=== PATIENT | male | born 1980 | race Caucasian/White ===

== ENCOUNTER 2025-03-24 16:01 | Emergency (ER) | payer BC, SELFPAY ==
[2025-03-24 16:10] VITALS: BP 114/84
--- NOTE | 2025-03-24 17:32 | ED.GENMED ---
History of Present Illness
General
Chief Complaint: Musculo-Skeletal Complaint
Source: patient
Exam Limitations: none
Time Seen by Provider: 03/24/25 17:29
History of Present Illness
History of Present Illness:
See MDM
Past History
Past History
ED Past Medical History: GERD and Other (Anxiety)
ED Past Surgical History: None
Social History
Tobacco: Smoker
Alcohol: Daily
Drug: None
Personal: Other
Living: with family
Employment: Employed
Family History
Family History: Other (His father had esophageal cancer)
Phy Exam
Physical Exam
Physical Exam:
See MDM
Course
Orders/Labs/Results
Orders:
Orders
03/24/25 16:10
Ribs, Right 3 View W/PA Chest [CR Ribs-right 3 Vw W/pa Chest*] Urgent
Comment:
Reason For Exam: injury
Vital Signs
Initial and Last Documented VS:
Initial Vital Signs
Temp Pulse Resp BP Pulse Ox
98.4 F 71 17 114/84 99
03/24/25 16:10 03/24/25 16:10 03/24/25 16:10 03/24/25 16:10 03/24/25 16:10
Last Documented Vital Signs
Temp Pulse Resp BP Pulse Ox
98.4 F 71 17 114/84 99
03/24/25 16:10 03/24/25 16:10 03/24/25 16:10 03/24/25 16:10 03/24/25 16:10
MDM/Problems Addressed
Differential Diagnosis Includes:
HPI and MDM Narrative:
44-year-old male presenting with right lateral rib pain. Patient was hit by a baseball in his rib cage. Patient states he was curious about a possible rib fracture. X-ray done prior to my assess showing no evidence of rib fracture or
pneumothorax. On my exam, he does have bruising to his right lateral chest. No crepitus. No acute respiratory distress. Patient states he feels comfortable going home. He declined pain medicine
Physical exam
General: Well appearing and non-toxic
HEENT: protecting airway
Neck: appears supple
CV: No evidence of cyanosis
Chest: Bruising noted to right lateral rib cage. No crepitus
Resp: No accessory muscle use
Abd: Non-distended
Extremities: No deformities
Neuro: alert
Psych: Normal affect
Skin: Intact
Problems Addressed including Acute and Chronic Conditions affecting care:
1. Rib contusion
Acuity: acute
Prognosis: stable
Details: X-ray negative for fracture. Patient feels comfortable going home
Differential Diagnosis (but not limited to): Rib fracture, rib contusion, pneumothorax
Testing considered: EKG
Drug therapy (if applicable): OTC meds, please see d/c instruction regarding Rx drugs
Amount and/or Complexity of Data Reviewed
Clinical info obtained from: Patient
External data reviewed: N/A
Labs I independently reviewed (but not limited to): N/A
Radiology: X-ray independently reviewed: No rib fracture seen on x-ray
Pulse Ox: not hypoxic
EKG independently reviewed: N/A
Boat Operator: N/A
Critical Care: N/A
Risk of Complication:
Social Determinants of health: Good social support
Discussed with other providers: N/A
Escalation of Care includes Admit/Obs: After being observed in the Emergency Department, pt stable for discharge.
Occasional wrong word or 'sound a like' substitutions may have occurred due to the inherent limitations of voice recognition software. Read the chart carefully and recognize, using context, where substitutions have occurred.
*Critical Care Note
Total Time (30-74mins, 75-104mins- exclusive of procedures): Not Applicable
ED Attending Note
-
Portions of this chart may have been created with voice recognition software.� Occasional wrong word or��sound alike� substitutions may have occurred due to the inherent limitations of voice recognition software.
Discharge Plan
Departure
Patient Disposition: Home (Routine Discharge)
Date of Disposition: 03/24/25
Time of Disposition: 17:33
Patient with high blood pressure during this ER visit?: No
Discharge Problem:
Contusion of rib on right side
Instructions: Rib fracture or bruised rib - ED discharge instructions
Prescriptions:
No Action
omeprazole [Prilosec] 40 MG capsule,delayed release(DR/EC)
40 mg PO DAILY
lorazepam 0.5 MG tablet
0.5 mg PO Q4HPRN PRN (Reason: anxiety)
escitalopram oxalate 20 MG tablet
20 mg PO DAILY
hydrocortisone acetate 25 MG suppository
25 mg IA BID Qty: 10 0RF
hydrocodone-acetaminophen 1 TABLET tablet
1 tab PO Q4HPRN PRN (Reason: Moderate to severe pain) Qty: 12 0RF
ibuprofen 600 MG tablet
600 mg PO Q6 Qty: 20 0RF
Activity Restrictions/Additional Instructions:
Please return for any worsening symptoms.
You may return at any time if you have further concerns.
Please follow up with your doctor at the first available appointment, preferably this week.
Thank you for choosing [facility].
Interventions
Interventions:
*Risk Screen - Suicide Last Done: 03/24/25 16:10
*General Assessment Last Done: 03/24/25 16:10
*ED- Fall Risk Assessment Last Done: 03/24/25 16:10
*ED COVID-19 Vaccine History Last Done: 03/24/25 16:10
Discharge Date and Time
Print Language: OCCITAN
== END 2025-03-24 19:00 | disposition home or self-care (01) ==
LOC: EMR 16:01
PROVIDERS: EMERGENCY PHYSICIAN Student in an Organized Health Care Education/Training Program; FAMILY PHYSICIAN Internal Medicine
DX: S20.211A Contusion of right front wall of thorax, initial encounter (principal); W21.03XA Struck by baseball, initial encounter; F41.9 Anxiety disorder, unspecified; K21.9 Gastro-esophageal reflux disease without esophagitis; F17.200 Nicotine dependence, unspecified, uncomplicated
CPT/HCPCS: 99283; 71101

== ENCOUNTER → 2025-08-08 11:35 | Outpatient (REF) | payer BC, SELFPAY | LOC: HWRAD 11:35 | PROVIDERS: ATTENDING PHYSICIAN Internal Medicine | DX: R19.8 Other specified symptoms and signs involving the digestive system and abdomen (principal) | CPT/HCPCS: 74018 ==